=== PATIENT | female | born 1970 | race Caucasian/White ===

== ENCOUNTER 2018-06-10 16:01 | Outpatient (CLI) | payer BC, SELFPAY ==
[2018-06-12 23:36] LABS: Tissue Transglutaminase Ab IgA <1.2 U/mL; Tissue Transglutaminase Ab IgG <1.2 U/mL
== END 2018-06-10 16:02 ==
PROVIDERS: PCP Internal Medicine; Visit Provider Surgery
DX: K20.0 Eosinophilic esophagitis (principal)
CPT/HCPCS: 36415; 83516

== ENCOUNTER 2018-07-26 14:21 | Outpatient (CLI) | payer BC, SELFPAY ==
[2018-07-29 14:49] LABS: Almond IgE <0.35 kU/L; Beef IgE <0.35 kU/L; Brazil Nut IgE <0.35 kU/L; Cashew IgE <0.35 kU/L; Cheese Cheddar IgE <0.35 kU/L; Clam IgE <0.35 kU/L; Codfish IgE <0.35 kU/L; Corn-Food IgE <0.35 kU/L; Crab IgE <0.35 kU/L; Halibut IgE <0.35 kU/L; Hazelnut-Food IgE <0.35 kU/L; Lobster IgE <0.35 kU/L; Mackerel IgE <0.35 kU/L; Milk, IgE <0.35 kU/L; Oyster IgE <0.35 kU/L; Peanut IgE <0.10 kU/L; Pecan-Food IgE <0.35 kU/L; Salmon IgE <0.35 kU/L; Scallop IgE <0.35 kU/L; Shrimp IgE <0.35 kU/L; Soybean IgE <0.35 kU/L; Trout IgE <0.35 kU/L; Tuna IgE <0.35 kU/L; Walnut-Food IgE <0.35 kU/L; Whey, IgE <0.35 kU/L
[2018-07-29 15:13] LABS: Lime IgE <0.35 kU/L
[2018-08-01 17:11] LABS: Almond Food IgG <2.0 mcg/mL (<2.0); CLASS 0; Casein IgG 6.1 mcg/mL (<2.0); Cashew IgG 14.7 mcg/mL (<2.0); Egg Whole IgE <0.10 kU/L (<0.35); Egg Whole IgG 7.9 mcg/mL (<2.0); Peanut IgG <2.0 mcg/mL (<2.0); Pecan IgG <2.0 mcg/mL (<2.0); Perch Ocean IgE <0.35 kU/L (<0.35); Rye Food IgG 5.6 mcg/mL (<2.0); Soybean IgG <2.0 mcg/mL (<2.0); Walnut Food IgG 2.5 mcg/mL (<2.0)
[2018-08-07 11:45] LABS: Brazil Nut IgG <0.35 mcg/mL
== END 2018-07-26 14:41 ==
PROVIDERS: PCP Internal Medicine; Visit Provider Otolaryngology Otolaryngology/Facial Plastic Surgery
DX: K20.0 Eosinophilic esophagitis (principal); Z01.82 Encounter for allergy testing
CPT/HCPCS: 36415; 86001; 86003

== ENCOUNTER 2018-09-16 21:27 | Outpatient (REF) | payer BC, SELFPAY ==
[2018-09-16 22:49] LABS: TSH 0.56 uIU/mL (0.358-3.74)
[2018-09-16 23:08] LABS: FREE T4 0.95 ng/dL (0.76-1.46)
[2018-09-18 10:41] LABS: Thyroglobulin Antibody 24 U/mL (<61); Thyroperoxidase Antibody <28 U/mL (<61)
[2018-09-18 12:36] LABS: Lyme Ab w Rflx to Lyme Confirm Negative
== END 2018-09-16 21:47 ==
LOC: NCHCN 21:27
PROVIDERS: PCP Internal Medicine; Visit Provider Nurse Practitioner
DX: M79.10 Myalgia, unspecified site (principal); E04.2 Nontoxic multinodular goiter
CPT/HCPCS: 86376; 84439; 84443; 86618

== ENCOUNTER 2018-12-30 08:51 | Outpatient (CLI) | payer BC, SELFPAY ==
--- NOTE | 2018-12-30 08:45 | DI.RAD_ITS ---
SYMPTOMS/DIAGNOSIS: RIGHT RING FINGER MASS RIGHT RING FINGER: Three views. No bone or joint abnormality is identified. The soft tissues appear grossly unremarkable. IMPRESSION: Negative right ring finger. If there is concern for a soft tissue mass, MRI should be considered for further evaluation.
== END 2018-12-30 09:11 ==
PROVIDERS: PCP Internal Medicine; Visit Provider Physician Assistant
DX: R22.31 Localized swelling, mass and lump, right upper limb (principal)
CPT/HCPCS: 73140

== ENCOUNTER 2018-12-31 13:23 | Day surgery (SDC) | payer BC, SELFPAY ==
[2018-12-31 13:44] VITALS: BP 114/58; PULSE 60; RESP 16; TEMP 36.8; O2SAT 99
--- NOTE | 2018-12-31 14:21 | PDOC.DSDIS_ITS ---
Discharge Plan Disposition Patient Disposition: HOME Condition: Good Discharge Details Reason For Visit: MASS (R) RING FINGER Attending Provider: Salomon Shah Primary Care Provider: Mandeep Henson Home Meds and New Rx's Prescriptions: New acetaminophen 500 mg tablet 500 mg PO Q6H PRN PRN (Reason: pain) Qty: 60 RF: 3 ibuprofen 600 mg tablet 600 mg PO TID PRNQty: 60 RF: 3 Continued omeprazole 40 MG capsule,delayed release(DR/EC) 40 mg PO DAILY Qty: 30 RF: 3 triamterene-hydrochlorothiazid 1 EACH capsule 1 tab PO .WEEK PRIOR TO MENSE RF: 0 cyclobenzaprine 10 MG tablet 10 mg PO HS PRNRF: 0 Discontinued ketorolac 10 MG tablet 10 mg PO PRN PRNRF: 0 Discharge Instructions Additional Instructions: Activity: You may use the finger for light activity. Early motion may be helpful but limit repetitve motions or any significant gripping or grasping. You may otherwise use the other fingers as tolerated. Dressings: Your surgical dressing should stay on for 48 hours. It may then be removed and replaced with a bandaid. It may get wet at this time but no submersion in tubs or other until follow-up appointment. Medications: - You should take Tylenol and Ibuprofen as primary pain medications. - You may apply ice. Follow-up: 7 days Referrals: Salomon Shah MD [ [facility] STAFF PHYSICIAN] - Activity:: Elevate Remove Dressings/Wound Care:: 48 hours Shower/Bathe:: 48 hours Diet:: As Tolerated Discharge Orders Discharge Orders: Discharge Order (Routine); Ordered 12/31/18 Ordered By: Salomon Shah DS: Diagnosis Discharge Diagnosis (1) Ganglion cyst of joint of finger of right hand: Status: Chronic
[2018-12-31] MEDS: Lidocaine 1% Pres-Free 5 ML VIAL (14:32)
[2018-12-31] MEDS: Sodium Bicarbonate 50 MEQ/50 ML VIAL (14:32)
--- NOTE | 2018-12-31 14:44 | SOFT_PTH ---
PATIENT: Viviane Vyas LOC: [facility] U#:[id number] AGE/SX: 48/F ROOM: RE12/31/[address]: Salomon Shah MD : 1970 BED: DIS: 12/31/2018 SPEC #: [id number] RECD: 12/31/18 17:55 STATUS: AUDREY REQ #: [id number] SHAI: 12/31/18 14:[address]: Salomon Shah DEPT: Surgical Specimen RECD BY: aRdha Vanegas ENTERED: 12/31/18 17:56 SP TYPE: SOFT OTHR DR: Mandeep Henson Tissues: 1 - SOFT TISSUE MISC (INC. LIPOMA) Procedures: GROSS AND MICRO LEVEL 4 Comments: [id number]
--- NOTE | 2019-01-05 21:45 | ROE_ITS ---
Date of service: 12/31/18 Time of Service: 14:35 Operative Note DATE OF PROCEDURE: 12/31/18 PRE-OP DIAGNOSIS: Right ring finger mass POST-OP DIAGNOSIS: same PROCEDURE: Excisional biopsy of right ring finger mass SURGEON: Salomon Shah ANESTHESIA: local ESTIMATED BLOOD LOSS: 0 PATHOLOGY: other (Right ring finger mass) COMPLICATIONS: None Patient was transported to: same day Patient's condition: stable Indications: I have seen Viviane in clinic for a right ring finger mass. The catching, clicking, locking, and pain limited function. The symptoms had not responded to conservative measures. I discussed excisional biopsy with the patient. I reviewed the risks of the procedure to include, but not limited to, bleeding, infection, pain, stiffness, need for repeat procedure, damage to ner ves or vessels, recurrence. Despite these risks, the patient elected to proceed. Findings: There was a mass superficially over the ulnar aspect of the ring finger PIP joint. It did not appear to arise from the joint nor did appear to be cystic. It had a appearance of synovitis without any surrounding tissue change. This was sent to pathology. Procedure Description: Viviane was greeted in the preoperative holding area where the correct side was identified and marked. The consent was reviewed with the patient and signed. All questions were answered. Viviane was taken back to the operating room. The patient was placed into the supine position on the operating room table with the right arm on an arm board. All bony prominences were well padded. No prophylactic antibiotics were administered since this was a clean, elective hand surgical case. The right arm was then prepped with Chloraprep and draped in a standard fashion with stockinette and extremity drape. A timeout to confirm correct identity, side and site, procedure, allergies, anesthesia, and medical concerns was performed. The surgical site was marked as a longitudinal incision over the dorsum of the ring finger PIP joint. Digital block was performed using 1% lidocaine. After anesthetic had fully set up, a 2 cm incision was then made over the dorsum of the ring finger just ulnar to midline. The skin was incised sharply. Immediately the mass is palpable. There were no surrounding changes to the tissues. Using a blunt tenotomy scissors I was able to separate this mass from surrounding tissue. It seemed to be lying directly on top of the PIP joint capsule. Again, there is no significant inflammatory change or other invasive findings. Its capsule was identified and it was excised. It was then sent to pathology. There was some prominence to the base of the middle phalanx. A small capsulotomy is performed in this area of prominence bone was smoothed with a rind door. However, there was no apparent cystic formation. The wound was then irrigated and the skin was closed with a 4-0 Nylon. This was dressed with gauze and a Conform dressing. The patient tolerated the procedure well and was returned to the Same Day Surgery area in a stable condition suffering no known complication.
== END 2018-12-31 15:33 | disposition home or self-care (01) ==
PROVIDERS: PCP Internal Medicine; Visit Provider Student in an Organized Health Care Education/Training Program
PROC: (CPT 26160; principal; 2018-12-31 14:45)
DX: M72.0 Palmar fascial fibromatosis [Dupuytren] (principal)
CPT/HCPCS: 26115; 88305

== ENCOUNTER → 2022-02-16 01:51 | Outpatient (CLI) | payer BC, SELFPAY | PROVIDERS: PCP Internal Medicine; Visit Provider Student in an Organized Health Care Education/Training Program ==

== ENCOUNTER 2022-11-01 10:53 | Day surgery (SDC) | payer BC, SELFPAY ==
--- NOTE | 2022-11-01 10:58 | W.PM.DSUDISC ---
Date of service: 11/01/22 Time of Service: 13:10 Discharge Plan Disposition Patient Disposition: Home Condition: Good Discharge Details Reason For Visit: Left ring finger mass Attending Provider: Salomon Shah Primary Care Provider: Melinda Jewell Home Meds and New Rx's Prescriptions: Continued ketorolac 10 mg tablet 10 mg PO TID PRN cyclobenzaprine 10 mg tablet 10 mg PO HS PRN omeprazole 40 MG capsule,delayed release(DR/EC) 40 mg PO DAILY Qty: 30 3RF triamterene-hydrochlorothiazid 1 EACH capsule 1 tab PO .WEEK PRIOR TO MENSE acetaminophen 500 mg tablet 500 mg PO Q6H PRN PRN (Reason: pain) Qty: 60 3RF ibuprofen 600 mg tablet 600 mg PO TID PRNQty: 60 3RF Discharge Instructions Additional Instructions: Mass Excision Discharge Instructions Activity: You should keep the hand elevated as much as possible for the first few days. You may use the other fingers as tolerated but avoid trying to do too much too soon. Dressing: Your dressing should stay in place for minimum of 48 hours. After 48 hours you may remove dressing and cover with a band-aide. Medications: - You should take Tylenol and Ibuprofen for baseline pain control. - You may apply ice over the finger. Follow-up: 7-10 days Referrals: Salomon Shah MD [ [facility] STAFF PHYSICIAN] - Activity:: Elevate Remove Dressings/Wound Care:: 48 hours Shower/Bathe:: 48 hours Diet:: As Tolerated Discharge Orders Discharge Orders: Discharge Order (Routine); Ordered 11/01/22 Ordered By: Juliana Lala
[2022-11-01 11:19] VITALS: BP 101/69; PULSE 64; RESP 18; TEMP 36.6; O2SAT 100
[2022-11-01] MEDS: Lidocaine 1% Pres-Free W/EPI 1/200,000 10 ML VIAL (13:55)
[2022-11-01] MEDS: Sodium Bicarbonate 50 MEQ/50 ML VIAL (13:55)
[2022-11-01 14:02] VITALS: BP 115/58; PULSE 63; RESP 18; TEMP 36.6; O2SAT 98
--- NOTE | 2022-11-01 19:16 | W.PM.OP ---
Date of service: 11/01/22 Time of Service: 14:00 Operative Note Operative Note DATE OF PROCEDURE: 11/01/22 PRE-OP DIAGNOSIS: Left ring finger mass POST-OP DIAGNOSIS: same PROCEDURE: Excision of mass from left ring finger PIP joint SURGEON: Salomon Shah ANESTHESIA TYPE: Local By Surgeon Refer to Anesthesia Record ESTIMATED BLOOD LOSS: 0 PATHOLOGY: none sent COMPLICATIONS: None Patient was transported to: same day Patient's condition: stable Indications: I have seen Viviane in clinic for symptoms of a mass about the dorsal aspect of the ring finger PIP joint. 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 This mass developed in a similar position on the left side. It caused pain and she desired to have it removed. I reviewed the risks of the procedure to include, but not limited to, bleeding, infection, pain, stiffness, recurrence, damage to nerves or vessels. Despite these risks, the patient elected to proceed. Findings: There was a small mass about the dorsal ulnar aspect of the ring. PIP joint. This was directly on top of the extensor garcia. It was a dense fibrous material as seen previously on the contralateral side. There is no extension of the joint. No involvement of the extensor mechanism. Procedure Description: Viviane was greeted in the preoperative holding area where the correct side was identified and marked. The consent was reviewed with the patient and signed. All questions were answered. She was taken back to the operating room. The patient was placed into the supine position on the operating room table with the left arm on an arm board. All bony prominences were well padded. No prophylactic antibiotics were administered since this was a clean, elective hand surgical case. The left arm was then prepped with Chloraprep and draped in a standard fashion with stockinette and extremity drape. A timeout to confirm correct identity, side and site, procedure, allergies, anesthesia, and medical concerns was performed. A digital block was then performed using 1% lidocaine with epinephrine and buffered with sodium bicarbonate. This was allowed time to set up completely and was tested before proceeding with the case. A longitudinal incision was then made overlying the mass. The skin was incised sharply. Full-thickness flaps were then elevated to expose the mass. A fibrous well-circumscribed mass was identified in the region of discomfort. It was adherent to the underlying extensor garcia. It was elevated off the extensor garcia and removed. This dense tissue measure approximate 4 mm x 3 mm x 2 mm. It was not sent to pathology given its fibers nature and it similar to the previous finger which had a similar diagnosis in appearance. The wound was thoroughly inspected for any other signs of remaining mass of the area. The finger was irrigated and once again checked to make sure that all components of the mass were removed. The skin was then closed using a #4-0 nylon in interrupted fashion. The finger was dressed with Xeroform, 4 x 4, conform dressing. The patient tolerated the procedure well and was returned to the Same Day Surgery area in a stable condition suffering no known complication.
== END 2022-11-01 14:12 | disposition home or self-care (01) ==
PROVIDERS: PCP Registered Nurse Infection Control; Visit Provider Student in an Organized Health Care Education/Training Program
PROC: (CPT 26116; principal; 2022-11-01 13:45)
DX: M25.842 Other specified joint disorders, left hand (principal)
CPT/HCPCS: 26116